=== PATIENT | female | born 1980 | race Caucasian/White ===

== ENCOUNTER 2020-04-10 19:43 | Emergency (ER) | payer OTHER ==
[~2020-04-10] VITALS: Ht 165.1 cm; Wt 92.5 kg
[2020-04-10 20:18] LABS: URINE BILIRUBIN NEGATIVE (Negative); URINE BLOOD NEGATIVE (Negative); URINE CLARITY CLEAR; URINE COLOR YELLOW; URINE GLUCOSE-RANDOM NEGATIVE (Negative); URINE KETONES NEGATIVE (Negative); URINE LEUKOCYTES-REFLEX NEGATIVE (Negative); URINE NITRITE-REFLEX NEGATIVE (Negative); URINE PROTEIN 1+ (Negative); URINE SPECIFIC GRAVITY >= 1.030 (1.005-1.030); URINE UROBILINOGEN 0.2 E.U./dl (0.2-1.0)
[2020-04-10 20:20] LABS: ABSOLUTE BASOPHILS 0.1 thou/uL (0.0-0.2); ABSOLUTE EOSINOPHILS 0.1 thou/uL (0.0-0.7); ABSOLUTE LYMPHOCYTES 1.2 thou/uL (0.8-5.3); ABSOLUTE MONOCYTES 0.4 thou/uL (0.0-1.2); ABSOLUTE NEUTROPHILS 8.2 thou/uL (1.6-8.1); BASOPHILS 0.7 %; EOSINOPHILS 0.7 %; HEMOGLOBIN 13.6 gm/dL (12.0-15.0); MCH 31.8 pg (26.0-34.0); MCHC 34.7 g/dL (28.0-37.0); MCV 91.5 fL (80.0-100.0); MONOCYTES 4.2 %; MPV 8.6 fl. (7.2-11.1); NUCLEATED RBCS 0 /100WBC; PLATELET COUNT* 237 thou/uL (150-400); POLYS 82.4 %; RBC 4.27 mil/uL (4.20-5.00); RDW-CV 13.7 % (10.5-14.5); WBC 9.9 thou/uL (4.0-11.0)
[2020-04-10 20:22] LABS: CALCIUM 9.4 mg/dL (8.5-10.1); POTASSIUM 3.9 mmol/L (3.5-5.1)
[2020-04-10 20:26] LABS: ALBUMIN 4.4 g/dL (3.4-5.0); TOTAL BILIRUBIN 0.4 mg/dL (<0.1-1.0); TOTAL PROTEIN 7.6 g/dL (6.4-8.2)
[2020-04-10] MEDS ORDERED: HYDROCODON-ACE1 EAC7 PO (21:48)
[2020-04-10] MEDS ORDERED: ZOFRAN ODT4 MG PO (21:48)
[2020-04-10 22:31] VITALS: BP 127/70
--- NOTE | 2020-04-11 11:42 | EKG ---
[place] [address] ELECTROCARDIOGRAM REPORT Name: SEAN MARTINEZ Room: [facility]#: [id number] Admission: 04/10/20 Attend Phys: Discharge: 04/10/20 Date of : 84 Date of Service: 04/10/202044 Report #: [id number] THIS REPORT FOR: //name// [facility] ED Test Date: 2020-04-10 Test Time: 20:45:26 Pat Name: SEAN MARTINEZ Department: Room: Gender: F Payment Specialist: RANGEL : 1980 Requested By: Mireya Ibarra Order Number: [id number] MD: Anirudh Freeman Measurements Intervals [place] Rate: 75 P: 42 CT: 119 QRS: 57 QRSD: 105 T: 32 QT: 396 QTc: 443 Interpretive Statements Sinus rhythm Borderline short CT interval Low voltage, extremity and precordial leads Baseline wander in lead(s) III No previous ECG available for comparison Electronically Signed On 04-11-2020 11:42:31 CDT by Anirudh Freeman [email or web address] <ELECTRONICALLY SIGNED> By: Campos Freeman MD, [facility] 04/11/20 1142 [id number] 44 Campos Freeman MD, [facility] /EPI
== END 2020-04-10 22:32 | disposition home or self-care (01) ==
LOC: M.ERS 19:43
PROVIDERS: Personal Emergency Response Attendant
DX: R10.31 Right lower quadrant pain (principal); Z90.711 Acquired absence of uterus with remaining cervical stump; Z90.49 Acquired absence of other specified parts of digestive tract